=== PATIENT | female | born 1960 | race Caucasian/White ===

== ENCOUNTER → 2016-04-29 | Outpatient (CLI) | payer BC, OTHER ==
[2016-04-29 14:35] LABS: FOLATE > 24.0 NG/ML; VITAMIN B12 LEVEL 480 PG/ML
[2016-04-29 14:37] LABS: ALBUMIN 4.4 GM/DL (3.2-5.2); ALBUMIN/GLOBULIN RATIO 1.38 (1.00-1.93); ALKALINE PHOSPHATASE 73 U/L (45-117); ALT/SGPT 28 U/L (12-78); ANION GAP 8 MEQ/L (8-16); AST/SGOT 22 U/L (15-37); BILIRUBIN,TOTAL 1.2 MG/DL (0.2-1.0); BLOOD UREA NITROGEN 16 MG/DL (7-18); CALCIUM LEVEL 9.3 MG/DL (8.5-10.1); CARBON DIOXIDE LEVEL 29 MEQ/L (21-32); CHLORIDE LEVEL 104 MEQ/L (98-107); CREATININE FOR GFR 0.84 MG/DL (0.55-1.02); FERRITIN 128 NG/ML (8-252); GLOMERULAR FILTRATION RATE > 60.0 (>51); GLUCOSE, FASTING 110 MG/DL (70-105); POTASSIUM SERUM 4.1 MEQ/L (3.5-5.1); SODIUM LEVEL 141 MEQ/L (136-145); TOTAL PROTEIN 7.6 GM/DL (6.4-8.2)
[2016-04-29 16:15] LABS: ERYTHROCYTE SEDIMENTATION RATE 7 mm/hr (0-30)
[2016-04-29 18:14] LABS: BASO # 0.2 K/mm3 (0.0-0.2); BASO % 2.2 % (0.0-1.0); EOS # 0.3 K/mm3 (0.0-0.50); EOS % 3.1 % (0.0-3.0); LARGE UNSTAINED CELL # 0.2 K/mm3 (0.0-0.4); LARGE UNSTAINED CELL % 1.8 % (0.0-4.0); LYMPH # 3.3 K/mm3 (1.5-4.5); MEAN CORPUSCULAR HEMOGLOBIN 29.5 pg (27.0-33.0); MEAN CORPUSCULAR HGB CONC 33.6 g/dl (32.0-36.5); MEAN CORPUSCULAR VOLUME 87.8 fl (80.0-96.0); MONO # 0.4 K/mm3 (0.0-0.8); MONO % 4.3 % (0.0-5.0); NEUTROPHILS # 4.6 K/mm3 (1.8-7.7); NEUTROPHILS % 52.6 % (36.0-66.0); PLATELET COUNT, AUTOMATED 285 k/mm3 (150-450); WHITE BLOOD COUNT 8.7 K/mm3 (4.0-10.0)
[2016-05-02 00:06] LABS: VITAMIN E LEVEL 20.5 mg/L (5.3-16.8)
== END ==
LOC: M LAB 13:26
PROVIDERS: ATTEND Psychiatry & Neurology Neurology
DX: G60.9 Hereditary and idiopathic neuropathy, unspecified (principal)

== ENCOUNTER → 2017-10-07 | Outpatient (REF) | payer OTHER ==
[2017-10-07 17:57] LABS: APPEARANCE, URINE CLEAR (CLEAR); BACTERIA, URINE AUTO NEGATIVE (NEGATIVE); BILIRUBIN, URINE AUTO NEGATIVE (NEGATIVE); BLOOD, URINE BLOOD NEGATIVE (NEGATIVE); COLOR, URINE STRAW (YELLOW); GLUCOSE, URINE (UA) AUTO NEGATIVE (NEGATIVE); KETONE, URINE AUTO NEGATIVE (NEGATIVE); LEUKOCYTE ESTERASE, URINE AUTO NEGATIVE (NEGATIVE); MUCUS, URINE SMALL (NEGATIVE); NITRITE, URINE AUTO NEGATIVE (NEGATIVE); PROTEIN, URINE AUTO NEGATIVE (NEGATIVE); RBC, URINE AUTO 0 /HPF (0-3); SPECIFIC GRAVITY URINE AUTO 1.009 (1.002-1.035); SQUAMOUS EPITHELIAL CELL UR AU 0 /HPF (0-6); UROBILINOGEN, URINE AUTO 0.2 mg/dL (0.0-2.0); WBC, URINE AUTO 2 /HPF (0-3)
== END ==
LOC: M LAB REF 16:56
DX: N39.0 Urinary tract infection, site not specified (principal)
CPT/HCPCS: 81001

== ENCOUNTER → 2019-04-03 | Outpatient (CLI) | payer BC, OTHER ==
[2019-04-03 13:21] LABS: HEMOGLOBIN A1c 7.2 %
[2019-04-03 13:28] LABS: ALBUMIN 4.5 GM/DL (3.2-5.2); CALCIUM LEVEL 9.6 MG/DL (8.5-10.1); CHOLESTEROL RISK RATIO 3.575 (<5); CREATININE FOR GFR 1.04 MG/DL (0.55-1.30); GLOMERULAR FILTRATION RATE 57.7 (>51); POTASSIUM SERUM 4.7 MEQ/L (3.5-5.1); TOTAL PROTEIN 7.8 GM/DL (6.4-8.2)
== END ==
LOC: M LAB 12:33
PROVIDERS: ATTEND Physician Assistant
DX: I10 Essential (primary) hypertension (principal); E78.5 Hyperlipidemia, unspecified; E11.9 Type 2 diabetes mellitus without complications

== ENCOUNTER → 2019-09-23 | Outpatient (CLI) | payer BC, OTHER ==
[2019-09-23 11:46] LABS: BASO # 0.1 10^3/uL (0.0-0.2); BASO % 0.7 % (0.0-1.0); EOS # 0.2 10^3/uL (0.0-0.5); EOS % 2.8 % (0.0-3.0); HEMATOCRIT 40.8 % (36.0-47.0); HEMOGLOBIN 13.4 g/dl (12.0-15.5); LYMPH # 3.1 10^3/uL (1.5-5.0); LYMPH % 37.6 % (24.0-44.0); MEAN CORPUSCULAR HEMOGLOBIN 29.5 pg (27.0-33.0); MEAN CORPUSCULAR HGB CONC 32.8 g/dl (32.0-36.5); MEAN CORPUSCULAR VOLUME 89.7 fl (80.0-96.0); MONO # 0.4 10^3/uL (0.0-0.8); MONO % 5.1 % (0.0-5.0); NEUTROPHILS # 4.4 10^3/uL (1.5-8.5); NEUTROPHILS % 53.1 % (36.0-66.0); PLATELET COUNT, AUTOMATED 273 10^3/uL (150-450); RED BLOOD COUNT 4.55 10^6/uL (4.00-5.40); WHITE BLOOD COUNT 8.2 10^3/uL (4.0-10.0)
[2019-09-23 12:16] LABS: HEMOGLOBIN A1c 6.7 %
[2019-09-23 12:29] LABS: ALBUMIN 4.3 GM/DL (3.2-5.2); ALT/SGPT 23 U/L (12-78); BILIRUBIN,TOTAL 0.8 MG/DL (0.2-1.0); BLOOD UREA NITROGEN 22 MG/DL (7-18); CALCIUM LEVEL 9.5 MG/DL (8.5-10.1); CARBON DIOXIDE LEVEL 24 MEQ/L (21-32); CHLORIDE LEVEL 109 MEQ/L (98-107); CHOLESTEROL LEVEL 209 MG/DL (<200); CHOLESTEROL RISK RATIO 4.019 (<5); CREATININE FOR GFR 0.95 MG/DL (0.55-1.30); GLOMERULAR FILTRATION RATE > 60.0 (>51); GLUCOSE, FASTING 117 MG/DL (70-100); HDL CHOLESTEROL 52 MG/DL (>40); NON-HDL-C 157 MG/DL; POTASSIUM SERUM 4.5 MEQ/L (3.5-5.1); SODIUM LEVEL 142 MEQ/L (136-145); TOTAL 25(OH) VITAMIN D 22.5 NG/ML (30.0-100.0); TOTAL PROTEIN 7.6 GM/DL (6.4-8.2); TRIGLYCERIDES LEVEL 402 MG/DL (<150)
== END ==
LOC: M LAB 10:40
PROVIDERS: ATTEND Physician Assistant
DX: I10 Essential (primary) hypertension (principal); E78.5 Hyperlipidemia, unspecified; F33.1 Major depressive disorder, recurrent, moderate; E11.9 Type 2 diabetes mellitus without complications; E55.9 Vitamin D deficiency, unspecified

== ENCOUNTER → 2020-10-23 | Outpatient (CLI) | payer BC, OTHER ==
--- NOTE | 2020-10-23 17:28 | REP ---
INDICATION: PAIN IN LEFT FOOT COMPARISON: None TECHNIQUE: Five views FINDINGS: There is slight patellar marginal osteophytosis with mild patellofemoral joint space narrowing. There is mild medial compartmental narrowing. There is no evidence of an acute fracture, dislocation, or subluxation. IMPRESSION: Chronic changes as described above. <Electronically signed by Mitesh Levine > 10/23/20 [id number]
--- NOTE | 2020-10-23 17:29 | REP ---
INDICATION: PAIN IN LEFT FOOT. COMPARISON: None. TECHNIQUE: Four views each foot FINDINGS: Right foot: The joint spaces are symmetric and relatively well maintained. There is no acute fracture or destructive osseous lesion. There is a moderate-sized plantar calcaneal heel spur. 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 Left foot: There is a moderate-sized plantar calcaneal heel spur. The joint spaces are symmetric and relatively well maintained. There is no acute fracture or destructive osseous lesion. 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 IMPRESSION: Chronic changes seen bilaterally as described above. <Electronically signed by Mitesh Levine > 10/23/20 [id number]
== END ==
LOC: M RAD 16:57
PROVIDERS: ATTEND Physician Assistant
DX: M79.672 Pain in left foot (principal); M79.671 Pain in right foot; M25.562 Pain in left knee

== ENCOUNTER → 2021-05-14 | Outpatient (CLI) | payer BC, OTHER ==
[2021-05-14 15:08] LABS: ALBUMIN 4.1 GM/DL (3.2-5.2); ALT/SGPT 28 U/L (12-78); BILIRUBIN,TOTAL 1.2 MG/DL (0.2-1.0); BLOOD UREA NITROGEN 15 MG/DL (7-18); CALCIUM LEVEL 9.4 MG/DL (8.8-10.2); CARBON DIOXIDE LEVEL 25 MEQ/L (21-32); CHLORIDE LEVEL 109 MEQ/L (98-107); CHOLESTEROL LEVEL 148 MG/DL (<200); CREATININE FOR GFR 0.88 MG/DL (0.55-1.30); GLOMERULAR FILTRATION RATE > 60.0 (>45); GLUCOSE, FASTING 102 MG/DL (70-100); HDL CHOLESTEROL 54 MG/DL (>40); LDL CHOLESTEROL 42 MG/DL (<100); NON-HDL-C 94 MG/DL; POTASSIUM SERUM 5.2 MEQ/L (3.5-5.1); SODIUM LEVEL 139 MEQ/L (136-145); TOTAL PROTEIN 7.3 GM/DL (6.4-8.2); TRIGLYCERIDES LEVEL 261 MG/DL (<150)
[2021-05-14 15:09] LABS: HEMOGLOBIN A1c 6.6 %
== END ==
LOC: M LAB 13:37
PROVIDERS: ATTEND Physician Assistant
DX: E78.5 Hyperlipidemia, unspecified (principal); I10 Essential (primary) hypertension

== ENCOUNTER → 2021-06-23 | Outpatient (CLI) | payer BC, OTHER ==
[~2021-06-23] MED LIST: ECOT81TA5 PO; GNP1000C11 PO; ISOS1TAB35; METF500T13; METO50TA7; OMEP40CA5; ROSU20TA5; VENL150C43; VITA100093 PO; VITMTA PO; [UNRECOGNIZED DRUG - OTHER]
== END ==
LOC: M LABSMTC 09:23
PROVIDERS: ATTEND Anesthesiology
DX: Z01.812 Encounter for preprocedural laboratory examination (principal); Z11.52 Encounter for screening for COVID-19

== ENCOUNTER 2021-06-28 07:03 | Day surgery (SDC) | payer BC, OTHER ==
[~2021-06-28] VITALS: Ht 165.1 cm; Wt 68.9 kg
[~2021-06-28 07:03] MED LIST changes: +NS 1,000 ML IV ONE
[2021-06-28] MEDS ORDERED: propofoL 200 MG/20 ML VIAL As Ordered ONE (07:11)
[2021-06-28] MEDS ORDERED: LIDOCAINE 2% 100MG/5ML SDV (FOR ANES.) As Ordered ONE (07:13)
[2021-06-28] MEDS ORDERED: GLYCOPYRROLATE INJ 0.2 MG/ML 2 ML VIAL As Ordered ONE (08:15)
[2021-06-28] MEDS ORDERED: ATROPINE SULF 0.4 MG/ML 1ML VIAL (J0461) As Ordered ONE (08:16)
[2021-06-28 08:50] VITALS: BP 103/55
== END 2021-06-28 09:05 | disposition home or self-care (01) ==
LOC: M OPP 07:03
PROVIDERS: ATTEND Surgery
DX: Z12.11 Encounter for screening for malignant neoplasm of colon (principal); K57.30 Diverticulosis of large intestine without perforation or abscess without bleeding; Z85.3 Personal history of malignant neoplasm of breast; Z92.3 Personal history of irradiation; Z79.899 Other long term (current) drug therapy
CPT/HCPCS: 45378; J0461

== ENCOUNTER → 2022-02-07 | Outpatient (CLI) | payer BC, OTHER ==
[~2022-02-07] MED LIST changes: -NS 1,000 ML IV ONE
[2022-02-07 12:29] LABS: BASO # 0.1 10^3/uL (0.0-0.2); BASO % 0.6 % (0.0-1.0); EOS # 0.4 10^3/uL (0.0-0.5); EOS % 3.8 % (0.0-3.0); HEMATOCRIT 39.3 % (36.0-47.0); HEMOGLOBIN 12.6 g/dl (12.0-15.5); LYMPH # 2.7 10^3/uL (1.5-5.0); LYMPH % 23.2 % (24.0-44.0); MEAN CORPUSCULAR HEMOGLOBIN 29.3 pg (27.0-33.0); MEAN CORPUSCULAR HGB CONC 32.1 g/dl (32.0-36.5); MEAN CORPUSCULAR VOLUME 91.4 fl (80.0-96.0); MONO # 0.7 10^3/uL (0.0-0.8); MONO % 6.1 % (2.0-8.0); NEUTROPHILS # 7.6 10^3/uL (1.5-8.5); NEUTROPHILS % 65.7 % (36.0-66.0); PLATELET COUNT, AUTOMATED 267 10^3/uL (150-450); WHITE BLOOD COUNT 11.5 10^3/uL (4.0-10.0)
[2022-02-07 13:00] LABS: ALT/SGPT 21 U/L (12-78); BILIRUBIN,TOTAL 0.7 MG/DL (0.2-1.0); BLOOD UREA NITROGEN 20 MG/DL (7-18); CALCIUM LEVEL 9.9 MG/DL (8.8-10.2); CARBON DIOXIDE LEVEL 26 MEQ/L (21-32); CHLORIDE LEVEL 106 MEQ/L (98-107); CHOLESTEROL LEVEL 174 MG/DL (<200); CHOLESTEROL RISK RATIO 3.107 (<5); CREATININE FOR GFR 0.83 MG/DL (0.55-1.30); GLOMERULAR FILTRATION RATE > 60.0 (>45); GLUCOSE, FASTING 127 MG/DL (70-100); HDL CHOLESTEROL 56 MG/DL (>40); LDL CHOLESTEROL 43 MG/DL (<100); NON-HDL-C 118 MG/DL; POTASSIUM SERUM 4.7 MEQ/L (3.5-5.1); SODIUM LEVEL 137 MEQ/L (136-145); TOTAL PROTEIN 7.6 GM/DL (6.4-8.2); TRIGLYCERIDES LEVEL 374 MG/DL (<150)
[2022-02-07 13:01] LABS: HEMOGLOBIN A1c 6.4 %
== END ==
LOC: M LAB 11:31
PROVIDERS: ATTEND Physician Assistant
DX: E78.5 Hyperlipidemia, unspecified (principal); I10 Essential (primary) hypertension; E11.9 Type 2 diabetes mellitus without complications; E55.9 Vitamin D deficiency, unspecified

== ENCOUNTER → 2023-02-15 | Outpatient (CLI) | payer BC, OTHER ==
[~2023-02-15] MED LIST changes: -ROSU20TA5; +ROSU20TA61
== END ==
LOC: M SLEEP 20:00
PROVIDERS: ATTEND Nurse Practitioner Family
DX: G47.33 Obstructive sleep apnea (adult) (pediatric) (principal)

== ENCOUNTER 2023-03-06 20:44 | Emergency (ER) | payer BC, OTHER ==
[~2023-03-06] VITALS: Ht 167.6 cm; Wt 70.3 kg
[2023-03-06 20:45] VITALS: TEMP 98.6
[2023-03-06 21:33] LABS: BASO # 0.1 10^3/uL (0.0-0.2); BASO % 0.7 % (0.0-1.0); EOS # 0.2 10^3/uL (0.0-0.5); EOS % 2.9 % (0.0-3.0); HEMATOCRIT 35.3 % (36.0-47.0); HEMOGLOBIN 11.8 g/dl (12.0-15.5); LYMPH # 2.8 10^3/uL (1.5-5.0); LYMPH % 37.5 % (24.0-44.0); MEAN CORPUSCULAR HEMOGLOBIN 30.1 pg (27.0-33.0); MEAN CORPUSCULAR HGB CONC 33.4 g/dl (32.0-36.5); MEAN CORPUSCULAR VOLUME 90.1 fl (80.0-96.0); MONO # 0.4 10^3/uL (0.0-0.8); MONO % 5.2 % (2.0-8.0); NEUTROPHILS % 53.3 % (36.0-66.0); PLATELET COUNT, AUTOMATED 221 10^3/uL (150-450); RED BLOOD COUNT 3.92 10^6/uL (4.00-5.40); WHITE BLOOD COUNT 7.6 10^3/uL (4.0-10.0)
[2023-03-06] MEDS ORDERED: MAALOX 30 ML SUSP *UDC PO ONE (21:35)
[2023-03-06] MEDS ORDERED: ASPIRIN 81MG CHEW TABLET PO ONE (21:35)
[2023-03-06 21:57] LABS: BLOOD UREA NITROGEN 19 MG/DL (9-23); CALCIUM LEVEL 9.4 MG/DL (8.3-10.6); CARBON DIOXIDE LEVEL 23 MMOL/L (20-31); CHLORIDE LEVEL 104 MMOL/L (98-107); CK-MB VALUE MASS < 1.0 NG/ML (<3.6); CREATININE FOR GFR 0.95 MG/DL (0.55-1.30); GLOMERULAR FILTRATION RATE > 60.0 (>45); GLUCOSE, FASTING 130 MG/DL (74-106); POTASSIUM SERUM 3.8 MMOL/L (3.5-5.1); SODIUM LEVEL 138 MMOL/L (136-145)
[2023-03-06 22:00] LABS: CPK CREATINE PHOSPHOKINASE 82 U/L (34-145); MB/CK RELATIVE INDEX 1.21 (< OR =4)
[2023-03-06 23:05] LABS: CK-MB VALUE MASS < 1.0 NG/ML (<3.6); CPK CREATINE PHOSPHOKINASE 72 U/L (34-145); MB/CK RELATIVE INDEX 1.38 (< OR =4)
[2023-03-07] MEDS ORDERED: SUCRALFATE 1 GM TAB PO ONE (00:45)
[2023-03-07] MEDS ORDERED: FAMOTIDINE 20 MG TAB PO ONE (00:45)
[2023-03-07] MEDS ORDERED: CARA1TAB6 PO (00:51)
[2023-03-07] MEDS ORDERED: PEPC1TAB5 PO (00:51)
[2023-03-07 00:57] VITALS: BP 173/86; O2SAT 94
== END 2023-03-07 01:01 | disposition home or self-care (01) ==
LOC: M ED 20:44
DX: R07.89 Other chest pain (principal); I44.7 Left bundle-branch block, unspecified; E11.9 Type 2 diabetes mellitus without complications; I10 Essential (primary) hypertension; K21.9 Gastro-esophageal reflux disease without esophagitis; J30.2 Other seasonal allergic rhinitis; Z98.61 Coronary angioplasty status; Z79.82 Long term (current) use of aspirin; Z79.4 Long term (current) use of insulin; Z79.899 Other long term (current) drug therapy

== ENCOUNTER 2023-03-07 13:45 | Emergency (ER) | payer BC, OTHER ==
[~2023-03-07 13:45] MED LIST changes: +CARA1TAB6 PO; +PEPC1TAB5 PO
[2023-03-07 13:46] VITALS: BP 152/76; TEMP 97.4; O2SAT 99
== END 2023-03-07 16:02 | disposition left against medical advice (07) ==
LOC: M ED 13:45
DX: Z53.21 Procedure and treatment not carried out due to patient leaving prior to being seen by health care provider (principal)

== ENCOUNTER 2023-03-10 22:32 | Emergency (ER) | payer BC, OTHER ==
[~2023-03-10] VITALS: Ht 165.1 cm; Wt 68.2 kg
[2023-03-10 23:34] LABS: BASO # 0.1 10^3/uL (0.0-0.2); BASO % 0.8 % (0.0-1.0); EOS # 0.3 10^3/uL (0.0-0.5); HEMATOCRIT 36.2 % (36.0-47.0); HEMOGLOBIN 11.6 g/dl (12.0-15.5); LYMPH # 3.4 10^3/uL (1.5-5.0); LYMPH % 39.7 % (24.0-44.0); MEAN CORPUSCULAR HEMOGLOBIN 29.2 pg (27.0-33.0); MEAN CORPUSCULAR VOLUME 91.2 fl (80.0-96.0); MONO # 0.5 10^3/uL (0.0-0.8); MONO % 5.4 % (2.0-8.0); NEUTROPHILS # 4.4 10^3/uL (1.5-8.5); NEUTROPHILS % 50.6 % (36.0-66.0); PLATELET COUNT, AUTOMATED 234 10^3/uL (150-450); RED BLOOD COUNT 3.97 10^6/uL (4.00-5.40); WHITE BLOOD COUNT 8.7 10^3/uL (4.0-10.0)
[2023-03-11] MEDS ORDERED: KETOROLAC 30 MG/ML 1ML VIAL As Ordered ONE (00:08)
[2023-03-11 00:21] LABS: BLOOD UREA NITROGEN 23 MG/DL (9-23); CALCIUM LEVEL 10.2 MG/DL (8.3-10.6); CARBON DIOXIDE LEVEL 20 MMOL/L (20-31); CHLORIDE LEVEL 110 MMOL/L (98-107); CPK CREATINE PHOSPHOKINASE 99 U/L (34-145); CREATININE FOR GFR 0.98 MG/DL (0.55-1.30); GLUCOSE, FASTING 131 MG/DL (74-106); POTASSIUM SERUM 3.7 MMOL/L (3.5-5.1); SODIUM LEVEL 144 MMOL/L (136-145)
[2023-03-11 00:22] LABS: CK-MB VALUE MASS < 1.0 NG/ML (<3.6); MB/CK RELATIVE INDEX 1.01 (< OR =4)
[2023-03-11 00:27] LABS: CK-MB VALUE MASS < 1.0 NG/ML (<3.6)
[2023-03-11 00:29] LABS: CPK CREATINE PHOSPHOKINASE 95 U/L (34-145); MB/CK RELATIVE INDEX 1.05 (< OR =4)
[2023-03-11] MEDS ORDERED: ISOVUE-370 76% 100ML VIAL As Ordered ONE (00:49)
[2023-03-11] MEDS ORDERED: KETOROLAC 30 MG/ML 1ML VIAL IV ONE (01:00)
[2023-03-11] MEDS ORDERED: amLODIPine 5 MG TAB PO ONE (02:35)
[2023-03-11] MEDS ORDERED: NORV5TAB PO ×2 (02:37→03:10)
[2023-03-11 02:45] VITALS: BP 184/74
[2023-03-11 02:55] VITALS: BP 178/80; TEMP 98.8; O2SAT 98
== END 2023-03-11 02:57 | disposition home or self-care (01) ==
LOC: M ED 22:32
DX: R07.9 Chest pain, unspecified (principal); I10 Essential (primary) hypertension; I44.4 Left anterior fascicular block; I45.81 Long QT syndrome; G47.33 Obstructive sleep apnea (adult) (pediatric); Z79.82 Long term (current) use of aspirin; Z79.810 Long term (current) use of selective estrogen receptor modulators (SERMs); Z79.4 Long term (current) use of insulin; Z79.899 Other long term (current) drug therapy
CPT/HCPCS: 71045; 71275; 80048; 82550; 82553; 83880; 84484; 85025; 87486; 87581; 87633; 87798; 93005; 93041; 94760; 96374; 99285; J1885; Q9967

== ENCOUNTER → 2023-04-21 | Outpatient (CLI) | payer BC, OTHER ==
[~2023-04-21] MED LIST changes: +NORV5TAB PO
== END ==
LOC: M SLEEP 20:00
PROVIDERS: ATTEND Nurse Practitioner Family
DX: G47.33 Obstructive sleep apnea (adult) (pediatric) (principal)

== ENCOUNTER → 2023-04-30 | Outpatient (CLI) | payer BC, OTHER ==
[2023-04-30 13:48] LABS: MEAN CORPUSCULAR HEMOGLOBIN 29.7 pg (27.0-33.0); MEAN CORPUSCULAR HGB CONC 32.4 g/dl (32.0-36.5); MEAN CORPUSCULAR VOLUME 91.6 fl (80.0-96.0); PLATELET COUNT, AUTOMATED 331 10^3/uL (150-450); RED BLOOD COUNT 4.04 10^6/uL (4.00-5.40); WHITE BLOOD COUNT 8.3 10^3/uL (4.0-10.0)
[2023-04-30 14:19] LABS: BLOOD UREA NITROGEN 19 MG/DL (9-23); CALCIUM LEVEL 9.5 MG/DL (8.3-10.6); CARBON DIOXIDE LEVEL 24 MMOL/L (20-31); CHLORIDE LEVEL 106 MMOL/L (98-107); CHOLESTEROL LEVEL 194 MG/DL (<200); CHOLESTEROL RISK RATIO 3.51 (<5); CREATININE FOR GFR 0.76 MG/DL (0.55-1.30); GLOMERULAR FILTRATION RATE > 60.0 (>45); GLUCOSE, FASTING 134 MG/DL (74-106); HDL CHOLESTEROL 55.2 MG/DL (>40); LDL CHOLESTEROL 60.2 MG/DL (<100); NON-HDL-C 138.8 MG/DL; POTASSIUM SERUM 4.7 MMOL/L (3.5-5.1); SODIUM LEVEL 138 MMOL/L (136-145); TRIGLYCERIDES LEVEL 393 MG/DL (<150)
== END ==
LOC: M LAB 13:05
PROVIDERS: ATTEND Nurse Practitioner Family
DX: I25.110 Atherosclerotic heart disease of native coronary artery with unstable angina pectoris (principal)

== ENCOUNTER → 2023-11-07 | Outpatient (CLI) | payer BC, OTHER ==
[2023-11-07 12:15] LABS: HEMATOCRIT 37.6 % (36.0-47.0); HEMOGLOBIN 12.5 g/dl (12.0-15.5); MEAN CORPUSCULAR HEMOGLOBIN 29.7 pg (27.0-33.0); MEAN CORPUSCULAR HGB CONC 33.2 g/dl (32.0-36.5); MEAN CORPUSCULAR VOLUME 89.3 fl (80.0-96.0); PLATELET COUNT, AUTOMATED 314 10^3/uL (150-450); RED BLOOD COUNT 4.21 10^6/uL (4.00-5.40)
[2023-11-07 12:30] LABS: HEMOGLOBIN A1c 6.3 % (4.0-6.0)
[2023-11-07 12:49] LABS: ALBUMIN 4.2 G/DL (3.2-5.2); BILIRUBIN,TOTAL 0.9 MG/DL (0.3-1.2); CALCIUM LEVEL 9.7 MG/DL (8.3-10.6); CREATININE FOR GFR 1.02 MG/DL (0.55-1.30); GLOMERULAR FILTRATION RATE 58.1 (>45); POTASSIUM SERUM 4.6 MMOL/L (3.5-5.1); TOTAL PROTEIN 7.5 G/DL (5.7-8.2)
[2023-11-07 12:51] LABS: THYROID STIMULATING HORMONE 2.323 uIU/ML (0.55-4.78)
[2023-11-10 07:02] LABS: WHITE BLOOD COUNT 9.6 10^3/uL (4.0-10.0)
== END ==
LOC: M LAB 11:24
PROVIDERS: ATTEND Physician Assistant
DX: E78.5 Hyperlipidemia, unspecified (principal); E11.9 Type 2 diabetes mellitus without complications; I25.799 Atherosclerosis of other coronary artery bypass graft(s) with unspecified angina pectoris

== ENCOUNTER → 2024-01-17 | Outpatient (REF) | payer BC, OTHER ==
[~2024-01-17] MED LIST changes: -ROSU20TA61; +ROSU20TA86
== END ==
LOC: M LAB REF 17:27
PROVIDERS: ATTEND Physician Assistant Medical
DX: R05.9 Cough, unspecified (principal)

== ENCOUNTER 2024-02-19 06:32 | Day surgery (SDC) | payer BC ==
[~2024-02-19] VITALS: Ht 165.1 cm; Wt 68.9 kg
[~2024-02-19 06:32] MED LIST changes: -METF500T13; +METF500T13 PO; -METO50TA7; +METO50TA7 PO; +OLME40TA PO; -OMEP40CA5; +OMEP40CA5 PO; +PRED20TA PO; -ROSU20TA86; +ROSU20TA86 PO; -VENL150C43; +VENL150C43 PO
[2024-02-19] MEDS: OFLOXACIN 0.3 % (OCUFLOX) OPTH SOL 5ML OD ONE (07:17)
[2024-02-19] MEDS: LIDOCAINE 3.5 % 1ML OPHTH TOPICAL GEL OU ONE (07:18)
[2024-02-19] MEDS: TROPICAMIDE 1% OPHTH SOLN 15ML OD SCH (07:18)
[2024-02-19] MEDS: PHENYLEPHRINE 2.5% OPHTH SOL 2ML OD SCH (07:18)
[2024-02-19] MEDS: ATROPINE SULFATE 1% OPHTH SOLN 2ML BTL OD SCH (07:18)
[2024-02-19] MEDS: PHENYLEPHRINE 10% OPHTH SOL 5ML OD PRN (07:48)
[2024-02-19] MEDS ORDERED: MIDAZOLAM INJ 2MG/2ML VIAL As Ordered ONE (07:58)
[2024-02-19] MEDS ORDERED: fentaNYL 100 MCG/2 ML INJECTION As Ordered ONE (07:58)
[2024-02-19] MEDS: CEFUROXIME 1MG/0.1ML INTRACAMERAL INJ As Ordered ONE (08:30)
[2024-02-19] MEDS: DUOVISC (0.50ML VISCOAT/0.85ML PROVISC) OPHTH KIT As Ordered ONE (08:30)
[2024-02-19] MEDS: BSS IRRIG/VANCO(10MG)/TOBRA(5MG)/EPINEPH(1:1000-0.5CC)500ML BAG-ORONLY As Ordered ONE (08:30)
[2024-02-19] MEDS: LIDOCAINE 1% SDV 5ML VIAL As Ordered ONE (08:30)
[2024-02-19 08:45] VITALS: BP 148/79; TEMP 96.6; O2SAT 94
== END 2024-02-19 09:19 | disposition home or self-care (01) ==
LOC: M SDC 06:32
PROVIDERS: ATTEND Ophthalmology
DX: E11.36 Type 2 diabetes mellitus with diabetic cataract (principal); H25.11 Age-related nuclear cataract, right eye; I10 Essential (primary) hypertension; E78.00 Pure hypercholesterolemia, unspecified; G47.30 Sleep apnea, unspecified; K21.9 Gastro-esophageal reflux disease without esophagitis; Z79.899 Other long term (current) drug therapy; Z79.82 Long term (current) use of aspirin; Z79.84 Long term (current) use of oral hypoglycemic drugs; Z95.1 Presence of aortocoronary bypass graft; Z85.3 Personal history of malignant neoplasm of breast; Z92.3 Personal history of irradiation
CPT/HCPCS: 66984; J0697; J2250; J3010; V2632

== ENCOUNTER 2024-03-04 07:54 | Day surgery (SDC) | payer BC ==
[~2024-03-04] VITALS: Ht 165.1 cm; Wt 69.9 kg
[~2024-03-04 07:54] MED LIST changes: +MIDAZOLAM INJ 2MG/2ML VIAL As Ordered ONE; +PHENYLEPHRINE 10% OPHTH SOL 5ML OS PRN; +fentaNYL 100 MCG/2 ML INJECTION As Ordered ONE
[2024-03-04] MEDS ORDERED: INSULIN LISPRO (NovoLOG) PER UNIT SC PRN (08:45)
[2024-03-04] MEDS: OFLOXACIN 0.3 % (OCUFLOX) OPTH SOL 5ML OS ONE (09:15)
[2024-03-04] MEDS: LIDOCAINE 3.5 % 1ML OPHTH TOPICAL GEL OU ONE (09:15)
[2024-03-04] MEDS: TROPICAMIDE 1% OPHTH SOLN 15ML OS SCH (09:15)
[2024-03-04] MEDS: PHENYLEPHRINE 2.5% OPHTH SOL 2ML OS SCH (09:15)
[2024-03-04] MEDS: CYCLOPENTOLATE 1% OPHTH SOLN 2ML BTL OS SCH (09:15)
[2024-03-04] MEDS: LIDOCAINE 1% SDV 5ML VIAL As Ordered ONE (10:05)
[2024-03-04] MEDS: BSS IRRIG/VANCO(10MG)/TOBRA(5MG)/EPINEPH(1:1000-0.5CC)500ML BAG-ORONLY As Ordered ONE (10:05)
[2024-03-04] MEDS: CEFUROXIME 1MG/0.1ML INTRACAMERAL INJ As Ordered ONE (10:11)
[2024-03-04 10:19] VITALS: BP 130/82; TEMP 97.1; O2SAT 98
== END 2024-03-04 10:48 | disposition home or self-care (01) ==
LOC: M SDC 07:54
PROVIDERS: ATTEND Ophthalmology
DX: E11.36 Type 2 diabetes mellitus with diabetic cataract (principal); H25.21 Age-related cataract, morgagnian type, right eye; I10 Essential (primary) hypertension; I44.7 Left bundle-branch block, unspecified; E78.00 Pure hypercholesterolemia, unspecified; G47.30 Sleep apnea, unspecified; Z85.3 Personal history of malignant neoplasm of breast; Z79.899 Other long term (current) drug therapy; Z79.82 Long term (current) use of aspirin; Z79.84 Long term (current) use of oral hypoglycemic drugs; Z95.1 Presence of aortocoronary bypass graft; K21.9 Gastro-esophageal reflux disease without esophagitis; Z90.89 Acquired absence of other organs
CPT/HCPCS: 66984; J0697; J2250; J3010; V2632

== ENCOUNTER 2024-11-23 18:04 | Emergency (ER) | payer MEDICARE, BC ==
[~2024-11-23] VITALS: Ht 167.6 cm; Wt 69.7 kg
[~2024-11-23 18:04] MED LIST changes: -MIDAZOLAM INJ 2MG/2ML VIAL As Ordered ONE; -PHENYLEPHRINE 10% OPHTH SOL 5ML OS PRN; -fentaNYL 100 MCG/2 ML INJECTION As Ordered ONE
[2024-11-23] MEDS ORDERED: VITA1TAB82 PO (18:14)
[2024-11-23 20:56] VITALS: BP 159/75; TEMP 98.7; O2SAT 99
== END 2024-11-23 20:58 | disposition home or self-care (01) ==
LOC: M ED 18:04
DX: R79.89 Other specified abnormal findings of blood chemistry (principal); E11.9 Type 2 diabetes mellitus without complications; I25.10 Atherosclerotic heart disease of native coronary artery without angina pectoris; Z88.8 Allergy status to other drugs, medicaments and biological substances; Z87.891 Personal history of nicotine dependence; K21.9 Gastro-esophageal reflux disease without esophagitis

== ENCOUNTER 2025-02-09 07:51 | Emergency (ER) | payer MEDICARE, BC ==
[~2025-02-09] VITALS: Ht 167.6 cm; Wt 69.5 kg
[~2025-02-09 07:51] MED LIST changes: +ASCO1TAB5 PO; +GABA-1171; +VITA1TAB82 PO
[2025-02-09 10:41] VITALS: BP 148/67; TEMP 98; O2SAT 96
== END 2025-02-09 10:51 | disposition home or self-care (01) ==
LOC: EDBD 07:51 → M ED 07:51
DX: I25.119 Atherosclerotic heart disease of native coronary artery with unspecified angina pectoris (principal); T81.31XA Disruption of external operation (surgical) wound, not elsewhere classified, initial encounter; E11.9 Type 2 diabetes mellitus without complications; C50.911 Malignant neoplasm of unspecified site of right female breast; C50.912 Malignant neoplasm of unspecified site of left female breast; E78.5 Hyperlipidemia, unspecified; F41.9 Anxiety disorder, unspecified; F32.A Depression, unspecified; Z88.8 Allergy status to other drugs, medicaments and biological substances; Z91.09 Other allergy status, other than to drugs and biological substances; Z79.1 Long term (current) use of non-steroidal anti-inflammatories (NSAID); Z79.84 Long term (current) use of oral hypoglycemic drugs; Z79.899 Other long term (current) drug therapy; Z79.810 Long term (current) use of selective estrogen receptor modulators (SERMs)

== ENCOUNTER 2025-02-25 13:24 | Inpatient (IN) | payer MEDICARE, BC ==
[~2025-02-25] VITALS: Ht 167.6 cm; Wt 73.2 kg
[2025-02-25] VITALS (14 sets, daily range): BP systolic 74–116; BP diastolic 36–57; TEMP 97.1; O2SAT 95–96
[~2025-02-25 13:24] MED LIST changes: -GABA-1171; +GABA-1171 PO
[2025-02-25] MEDS: NS 500 ML IV ONE (13:59)
[2025-02-25] MEDS: PIPERACILLIN/TAZOBACTAM SOD 4.5 GM in DEXTROSE 5% (D5W) ADV/MINI-BAG 50 ML IV ONE (14:00)
[2025-02-25 14:01] LABS: BASO # 0.1 10^3/uL (0.0-0.2); BASO % 0.3 % (0.0-1.0); EOS # 0.0 10^3/uL (0.0-0.5); EOS % 0.0 % (0.0-3.0); LYMPH # 0.9 10^3/uL (1.5-5.0); LYMPH % 3.1 % (24.0-44.0); MONO # 1.6 10^3/uL (0.0-0.8); MONO % 5.8 % (2.0-8.0); NEUTROPHILS # 25.1 10^3/uL (1.5-8.5); NEUTROPHILS % 89.6 % (36.0-66.0); PLATELET COUNT, AUTOMATED 380 10^3/uL (150-450)
[2025-02-25] MEDS: ACETAMINOPHEN 325 MG TAB PO ONE (14:01)
[2025-02-25] MEDS ORDERED: VANCOMYCIN HCL 1,000 MG, VIAL MATE ADAPTER 1 EACH in NS 250 ML IV ONE (14:15)
[2025-02-25 14:20] LABS: KETONE, URINE AUTO RFX NEGATIVE (NEGATIVE); LEUKOCYTE ESTERASE UR AUTO RFX NEGATIVE (NEGATIVE); NITRITE, URINE AUTO RFX NEGATIVE (NEGATIVE); RBC, URINE AUTO RFX 1 /HPF (0-3); SQUAM EPITHELIAL CELL UR AURFX 0 /HPF (0-6); WBC, URINE AUTO RFX 1 /HPF (0-3)
[2025-02-25 14:30] LABS: CK-MB VALUE MASS < 1.0 NG/ML (<3.6)
[2025-02-25 14:31] LABS: CPK CREATINE PHOSPHOKINASE 33 U/L (34-145)
[2025-02-25 14:32] LABS: ALT/SGPT 22 U/L (7.0-40); AST/SGOT 27 U/L (<34); CALCIUM LEVEL 9.2 MG/DL (8.3-10.6); CARBON DIOXIDE LEVEL 21 MMOL/L (20-31); CHLORIDE LEVEL 106 MMOL/L (98-107); CREATININE FOR GFR 1.44 MG/DL (0.55-1.30); GLOMERULAR FILTRATION RATE 40.4 (>45); POTASSIUM SERUM 4.3 MMOL/L (3.5-5.1); SODIUM LEVEL 141 MMOL/L (136-145)
[2025-02-25] MEDS: [UNRECOGNIZED DRUG - OTHER] IV STA (14:41)
[2025-02-25] MEDS: NS 0.9% IV STA (14:41)
[2025-02-25] MEDS ORDERED: ISOVUE-370 76% 100 ML VIAL As Ordered ONE (15:02)
[2025-02-25 15:34] LABS: CK-MB VALUE MASS < 1.0 NG/ML (<3.6)
[2025-02-25 15:35] LABS: CPK CREATINE PHOSPHOKINASE 30 U/L (34-145)
[2025-02-25] MEDS: VANCOMYCIN HCL 1,500 MG, VIAL MATE ADAPTER 1 EACH in NS 500 ML IV ONE (16:04)
[2025-02-25] MEDS: NOREPINEPHRINE 4MG IN D5 250ML 4 MG in IV 1 EA IV SCH ×2 (16:18→21:03)
[2025-02-25] MEDS: IBUPROFEN 600 MG TAB PO ONE (17:04)
[2025-02-25 17:32] LABS: C REACTIVE PROTEIN QUANTITATIV 7.42 MG/DL (<1.0)
[2025-02-25] MEDS ORDERED: GLUCOSE 4 GM CHEW PO PRN (17:40)
[2025-02-25] MEDS ORDERED: DEXTROSE 50% 50 ML SYRINGE IV PRN (17:40)
[2025-02-25] MEDS ORDERED: GLUCAGON INJ 1 MG VIAL SC PRN (17:40)
[2025-02-25] MEDS ORDERED: ALBUTEROL SULFATE 2.5 MG/0.5 ML INH CONCENTRATE NEB SOLN NEB PRN (17:40)
[2025-02-25] MEDS: LR 1,000 ML IV ONE (18:10)
[2025-02-25] MEDS: INSULIN LISPRO (NovoLOG) PER UNIT SC SCH (18:10)
[2025-02-25] MEDS ORDERED: MULT-193 PO (18:12)
[2025-02-25] MEDS: ACETAMINOPHEN *IV* 1,000 MG in IV 1 EA IV PRN (18:17)
[2025-02-25] MEDS ORDERED: ACET-897 PO (18:18)
[2025-02-25] MEDS ORDERED: HOME MED LIST COMPLETE! XX SCH (18:25)
[2025-02-25] MEDS: LR 1,000 ML IV SCH (21:19)
[2025-02-25] MEDS: OMEPRAZOLE 20MG CAP PO SCH (21:19)
[2025-02-25] MEDS: CEFEPIME HCL 2 GM in DEXTROSE 5% (D5W) ADV/MINI-BAG 50 ML IV SCH (21:20)
[2025-02-25] MEDS: HEPARIN SOD 5000 UNITS/ML 1 ML VIAL/SYRINGE SC SCH (21:20)
[2025-02-26] VITALS (24 sets, daily range): BP systolic 102–141; BP diastolic 55–65; TEMP 96.8–98.8; O2SAT 95–99
[2025-02-26 06:36] LABS: PLATELET COUNT, AUTOMATED 284 10^3/uL (150-450)
[2025-02-26 06:45] LABS: VANCOMYCIN LEVEL TROUGH 11.9 UG/ML (10.0-20.0)
[2025-02-26 06:47] LABS: ALT/SGPT 28.0 U/L (7.0-40); AST/SGOT 43.0 U/L (<34); CALCIUM LEVEL 8.0 MG/DL (8.3-10.6); CARBON DIOXIDE LEVEL 19.0 MMOL/L (20-31); CHLORIDE LEVEL 113.0 MMOL/L (98-107); CREATININE FOR GFR 1.13 MG/DL (0.55-1.30); GLOMERULAR FILTRATION RATE 54.0 (>45); POTASSIUM SERUM 4.2 MMOL/L (3.5-5.1); SODIUM LEVEL 145.0 MMOL/L (136-145)
[2025-02-26] MEDS: INSULIN LISPRO (NovoLOG) PER UNIT SC SCH (08:09)
[2025-02-26] MEDS: ASPIRIN 81 MG ENTERIC TABLET PO SCH (08:26)
[2025-02-26] MEDS: ROSUVASTATIN 10 MG TAB PO SCH (08:26)
[2025-02-26] MEDS: VENLAFAXINE **XR** 75MG CAPSULE PO SCH (08:26)
[2025-02-26] MEDS: VANCOMYCIN HCL 1,000 MG, VIAL MATE ADAPTER 1 EACH in NS 250 ML IV SCH (08:26)
[2025-02-26] MEDS: GABAPENTIN 100 MG CAP PO SCH (14:54)
[2025-02-26] MEDS: LR 1,000 ML IV SCH (14:54)
[2025-02-26] MEDS ORDERED: GABAPENTIN 300 MG CAP PO SCH (16:00)
[2025-02-26] MEDS: MIRALAX *UNIT DOSE* 17 GM PACKET PO SCH (18:09)
[2025-02-27] VITALS (7 sets, daily range): BP systolic 140–166; BP diastolic 65–76; TEMP 97–99.8; O2SAT 95–99
[2025-02-27 06:26] LABS: PLATELET COUNT, AUTOMATED 313 10^3/uL (150-450)
[2025-02-27 06:54] LABS: ALT/SGPT 25.0 U/L (7.0-40); AST/SGOT 37.0 U/L (<34); CALCIUM LEVEL 8.3 MG/DL (8.3-10.6); CARBON DIOXIDE LEVEL 21.0 MMOL/L (20-31); CHLORIDE LEVEL 109.0 MMOL/L (98-107); CREATININE FOR GFR 0.96 MG/DL (0.55-1.30); GLOMERULAR FILTRATION RATE 65.7 (>45); POTASSIUM SERUM 3.8 MMOL/L (3.5-5.1); SODIUM LEVEL 144.0 MMOL/L (136-145)
[2025-02-27] MEDS: VANCOMYCIN HCL 1,000 MG, VIAL MATE ADAPTER 1 EACH in NS 250 ML IV SCH (08:53)
[2025-02-28] VITALS (7 sets, daily range): BP systolic 152–168; BP diastolic 75–82; TEMP 97.5–98.4; O2SAT 93–98
[2025-02-28 07:15] LABS: PLATELET COUNT, AUTOMATED 357 10^3/uL (150-450)
[2025-02-28 07:41] LABS: ALT/SGPT 21.0 U/L (7.0-40); AST/SGOT 28.0 U/L (<34); CALCIUM LEVEL 8.5 MG/DL (8.3-10.6); CARBON DIOXIDE LEVEL 25.0 MMOL/L (20-31); CHLORIDE LEVEL 108.0 MMOL/L (98-107); CREATININE FOR GFR 0.93 MG/DL (0.55-1.30); GLOMERULAR FILTRATION RATE 68.2 (>45); POTASSIUM SERUM 4.0 MMOL/L (3.5-5.1); SODIUM LEVEL 144.0 MMOL/L (136-145)
[2025-02-28] MEDS: LINEZOLID 600 MG TABLET PO SCH (20:25)
[2025-03-01 00:23] VITALS: BP 157/77; TEMP 98.2; O2SAT 95
[2025-03-01] MEDS: ACETAMINOPHEN 500 MG TAB PO ONE (02:11)
[2025-03-01 04:43] VITALS: BP 146/70; TEMP 98.1; O2SAT 96
[2025-03-01 05:36] LABS: PLATELET COUNT, AUTOMATED 355 10^3/uL (150-450)
[2025-03-01 06:02] LABS: ALT/SGPT 33.0 U/L (7.0-40); AST/SGOT 40.0 U/L (<34); CALCIUM LEVEL 8.5 MG/DL (8.3-10.6); CARBON DIOXIDE LEVEL 25.0 MMOL/L (20-31); CHLORIDE LEVEL 108.0 MMOL/L (98-107); CREATININE FOR GFR 0.91 MG/DL (0.55-1.30); GLOMERULAR FILTRATION RATE 70.0 (>45); POTASSIUM SERUM 4.0 MMOL/L (3.5-5.1); SODIUM LEVEL 144.0 MMOL/L (136-145)
[2025-03-01 08:00] VITALS: BP 140/70; TEMP 97.5; O2SAT 96
[2025-03-01] MEDS ORDERED: METH-1164 PO (10:48)
[2025-03-01] MEDS ORDERED: LINE1TAB6 PO (10:48)
[2025-03-01 12:00] VITALS: BP 152/75; TEMP 97.8; O2SAT 94
[2025-03-01] MEDS ORDERED: HEPARIN SOD 5000 UNITS/ML 1 ML VIAL/SYRINGE SC SCH (18:00)
== END 2025-03-01 16:06 | disposition home health service (06) | DRG 862 ==
LOC: M ED 13:24 → EEVIPCON 17:39 → M ED INP 17:39 → M ICU 20:17
PROVIDERS: ADMIT Internal Medicine Pulmonary Disease; ATTEND Internal Medicine Pulmonary Disease
DX: T81.49XA Infection following a procedure, other surgical site, initial encounter (principal); A41.9 Sepsis, unspecified organism; R65.21 Severe sepsis with septic shock; E87.20 Acidosis, unspecified; N17.9 Acute kidney failure, unspecified; T81.30XA Disruption of wound, unspecified, initial encounter; Z85.3 Personal history of malignant neoplasm of breast; Z92.3 Personal history of irradiation; R91.1 Solitary pulmonary nodule; Z90.13 Acquired absence of bilateral breasts and nipples; F41.9 Anxiety disorder, unspecified; F32.A Depression, unspecified; K21.9 Gastro-esophageal reflux disease without esophagitis; E78.5 Hyperlipidemia, unspecified; I25.10 Atherosclerotic heart disease of native coronary artery without angina pectoris; Z95.5 Presence of coronary angioplasty implant and graft; E11.9 Type 2 diabetes mellitus without complications; I10 Essential (primary) hypertension; Z90.49 Acquired absence of other specified parts of digestive tract; D64.9 Anemia, unspecified; Z79.82 Long term (current) use of aspirin; Z79.84 Long term (current) use of oral hypoglycemic drugs; Z79.899 Other long term (current) drug therapy; Z88.8 Allergy status to other drugs, medicaments and biological substances

== ENCOUNTER → 2025-03-15 | Outpatient (REF) | payer MEDICARE, BC ==
[~2025-03-15] MED LIST changes: +ACET-897 PO; +LINE1TAB6 PO; +METH-1164 PO; +MULT-193 PO
[2025-03-15 14:33] LABS: PLATELET COUNT, AUTOMATED 250 10^3/uL (150-450)
[2025-03-15 14:54] LABS: ALT/SGPT 47.0 U/L (7.0-40); AST/SGOT 32.0 U/L (<34); CALCIUM LEVEL 9.8 MG/DL (8.3-10.6); CARBON DIOXIDE LEVEL 24.0 MMOL/L (20-31); CHLORIDE LEVEL 104.0 MMOL/L (98-107); CREATININE FOR GFR 1.0 MG/DL (0.55-1.30); GLOMERULAR FILTRATION RATE 62.5 (>45); POTASSIUM SERUM 4.1 MMOL/L (3.5-5.1); SODIUM LEVEL 139.0 MMOL/L (136-145)
[2025-03-15 15:23] LABS: ESTIMATED AVERAGE GLUCOSE 134.0 MG/DL (60-110)
== END ==
LOC: M LAB REF 13:55
PROVIDERS: ATTEND Physician Assistant
DX: E11.40 Type 2 diabetes mellitus with diabetic neuropathy, unspecified (principal); I10 Essential (primary) hypertension; A41.02 Sepsis due to Methicillin resistant Staphylococcus aureus

== ENCOUNTER → 2025-03-28 | Outpatient (CLI) | payer MEDICARE, BC ==
[~2025-03-28] MED LIST changes: +LETR2.5T2 PO
== END ==
LOC: M WHC 08:31
PROVIDERS: ATTEND Specialist
DX: C50.919 Malignant neoplasm of unspecified site of unspecified female breast (principal); Z79.899 Other long term (current) drug therapy; M85.89 Other specified disorders of bone density and structure, multiple sites